=== PATIENT | male | born 1975 | race African-American/Black ===

== ENCOUNTER 2019-08-28 14:37 | Emergency (ER) | payer BC ==
[~2019-08-28] VITALS: Ht 188 cm; Wt 83.9 kg
[~2019-08-28 14:37] MED LIST: NKM
--- NOTE | 2019-08-28 14:45 | NUR ---
ED Nurse Note: Pt ambulated to ED with c/o presence of bright red blood on the stool this morning. Pt is AOx4; calm and cooperative. Placed on bed, on RA.
[2019-08-28 14:54] VITALS: BP 133/82
[2019-08-28] MEDS ORDERED: Omnipaque-300 100ml vial INJ PRN (15:00)
[2019-08-28 15:34] LABS: BASOPHILS % (AUTO) 2.9 % (0.0-2.0); EOSINOPHILS % (AUTO) 2.4 % (0.0-3.0); HEMATOCRIT 45.5 % (42.0-52.0); HEMOGLOBIN 15.3 G/DL (14.2-18.0); LYMPHOCYTES % (AUTO) 35.3 % (20.0-45.0); MEAN CORPUSCULAR VOLUME 88 FL (80-99); MONOCYTES % (AUTO) 10.1 % (1.0-10.0); NEUTROPHILS % (AUTO) 49.3 % (45.0-75.0); PLATELET COUNT 220 K/UL (150-450); RED BLOOD COUNT 5.16 M/UL (4.70-6.10); RED CELL DISTRIBUTION WIDTH 10.3 % (11.6-14.8)
[2019-08-28 15:38] LABS: ANION GAP 6 mmol/L (5-15); BLOOD UREA NITROGEN 15 mg/dL (7-18); CALCIUM 8.8 MG/DL (8.5-10.1); CARBON DIOXIDE 30 MMOL/L (21-32); CHLORIDE 108 MMOL/L (98-107); CREATININE 1.3 MG/DL (0.55-1.30); POTASSIUM 3.9 MMOL/L (3.5-5.1); SODIUM 144 MMOL/L (136-145)
--- NOTE | 2019-08-28 15:51 | NUR ---
ED Nurse Note: Pt went on CT accompanied by tech.
[2019-08-28 15:53] LABS: ALANINE AMINOTRANSFERASE 29 U/L (12-78); ALBUMIN 3.9 G/DL (3.4-5.0); ALBUMIN/GLOBULIN RATIO 1.1 (1.0-2.7); ALKALINE PHOSPHATASE 54 U/L (46-116); ASPARTATE AMINO TRANSFERASE 25 U/L (15-37); BILIRUBIN,TOTAL 3.7 MG/DL (0.2-1.0)
[2019-08-28 15:55] LABS: BILIRUBIN,DIRECT 0.1 MG/DL (0.0-0.3)
--- NOTE | 2019-08-28 16:36 | Diagnostic Imaging Report ---
Clinical Indication: Abdominal pain, bright red blood in stool Technique: No oral contrast utilized, per emergency room physician request IV administration nonionic contrast. Venous phase spiral acquisition obtained through the abdomen and pelvis. Multiplanar reconstructions were generated. Total dose length product 1112 mGycm. CTDIvol(s) 19 mGy. Dose reduction achieved using automated exposure control Comparison: none Findings: Lack of enteric contrast limits assessment of the GI tract. The appendix is normal. No small bowel distention. No free or loculated intraperitoneal gas or fluid is evident. Distal esophagus, stomach, duodenum is unremarkable. The liver demonstrates a 18 mm mostly hypoattenuating lesion with one focus of peripheral nodular enhancement in the dome of segment 7. No other focal liver lesions are evident. The gallbladder, bile ducts, pancreas, spleen, adrenals, left kidney are unremarkable. The right kidney demonstrates a subcentimeter low-attenuation lesion in the interpolar region which is too small to characterize. No retroperitoneal or mesenteric mass or adenopathy. No pelvic mass or adenopathy. The included lung bases demonstrate some linear atelectasis or scar on the left. The bones are unremarkable Impression: Limited assessment of the GI tract, due to lack of enteric contrast administration No definite acute abnormality or findings to explain stated clinical history of right red blood per rectum 18 mm low-attenuation right lobe liver lesion with focus of peripheral nodular enhancement. Possibly but not definitively a benign hemangioma. Consider further evaluation with hemangioma protocol CT or MRI Subcentimeter right renal lesion, too small to characterize, most likely benign simple cyst The CT scanner at [facility] is accredited by the [employer] and the scans are performed using protocols designed to limit radiation exposure to as low as reasonably achievable to attain images of sufficient resolution adequate for diagnostic evaluation.
[2019-08-28] MEDS ORDERED: ANUSOL-HC25 MG RECTAL (16:51)
--- NOTE | 2019-08-28 16:51 | Emergency Room Report ---
History of Present Illness General Chief Complaint: General Complaint Source: Patient Present Illness HPI 44-year-old male with no significant past medical history here complaining of new onset of rectal bleeding that started this morning after defecating. Patient reports that he always have regular bowel movements and never experienced constipation. Reports that this morning he noticed that there is an external hemorrhoid coming out as well as scant amount of blood as he defecated however denies any rectal bleeding at this time. Patient vital signs are within normal limits. Denies fatigue, shortness of breath, chest pain, headache and dizziness. Reports that has not had any colonoscopies in the past. Denies any cardiac history, or taking any blood thinners. Denies any pain at this time. Denies acid reflux, nausea vomiting, alcohol intake, tobacco smoke, drug use Allergies: Coded Allergies: No Known Allergies (Unverified , 10/02/12) Patient History Past Medical History: see triage record Past Surgical History: none Pertinent Family History: none Immunizations: UTD Reviewed Nursing Documentation: PMH: Agreed; PSxH: Agreed Nursing Documentation-PMH Past Medical History: No Stated History Review of Systems All Other Systems: negative except mentioned in HPI Physical Exam Vital Signs Date Time Temp Pulse Resp B/P (MAP) Pulse Ox O2 Delivery O2 Flow Rate FiO2 08/28/19 14:41 97.9 68 17 133/82 (99) 99 Room Air Sp02 EP Interpretation: reviewed, normal General Appearance: no apparent distress, alert, GCS 15, non-toxic Head: normocephalic, atraumatic Eyes: bilateral eye normal inspection, bilateral eye PERRL ENT: hearing grossly normal, normal pharynx, no angioedema, normal voice Neck: full range of motion, supple, supple/symm/no masses Respiratory: chest non-tender, lungs clear, normal breath sounds, no rhonchi, no retraction, no wheezing, speaking full sentences Cardiovascular #1: regular rate, rhythm, no edema, no murmur Gastrointestinal: normal bowel sounds, non tender, soft, no mass, no organomegaly, no peritonitis, no bruit, non-distended, no guarding, no hernia, no pulsatile mass, no rebound Rectal: deferred Genitourinary: no CVA tenderness Musculoskeletal: back normal, normal range of motion, no calf tenderness, gait/ station normal, non-tender Neurologic: alert, motor strength/tone normal, oriented x3, sensory intact, responsive, speech normal Psychiatric: judgement/insight normal, memory normal, mood/affect normal, no suicidal/homicidal ideation Skin: no rash Lymphatic: no adenopathy Medical Decision Making PA Attestation All diagnoses and treatment plans were reviewed and discussed with my supervising physician Dr. Beck Diagnostic Impression: Primary Impression: Acute hemorrhoid Additional Impressions: Renal cyst Liver lesion Rectal bleeding ER Course 44-year-old male with no significant past medical history here complaining of new onset of rectal bleeding that started this morning after defecating. Patient reports that he always have regular bowel movements and never experienced constipation. Reports that this morning he noticed that there is an external hemorrhoid coming out as well as scant amount of blood as he defecated however denies any rectal bleeding at this time. Patient vital signs are within normal limits. Denies fatigue, shortness of breath, chest pain, headache and dizziness. Reports that has not had any colonoscopies in the past. Denies any cardiac history, or taking any blood thinners. Denies any pain at this time. Denies acid reflux, nausea vomiting, alcohol intake, tobacco smoke, drug use Ddx considered but are not limited to: appendicitis, cholecystis, gastritis, gastroenteritis, UTI, pyelonephritis, SBO, diverticulitis, external hemorrhoids , internal hemorrhoids, colorectal cancer Vital signs: are WNL, pt. is afebrile H&PE are most consistent with: Possible internal and external hemorrhoids, incidental finding of a renal cyst, liver lesion ORDERS: abdominal CT, abdominal pain set, Anusol rectal cream ED INTERVENTIONS: NS bolus DISCHARGE: At this time pt. is stable for d/c to home. Will provide printed patient care instructions, and any necessary prescriptions. Care plan and follow up instructions have been discussed with the patient prior to discharge. Patient follow with primary care provider for referral to barratte operator to address rectal bleeding possible colonoscopy due to patient being - [place] and 44 years old. Patient to increase fiber intake and oral hydration. At this time no indication for stool softeners necessary as patient has regular bowel movements and is very active. Patient also to follow with primary care provider regarding renal cyst and liver lesion. CT/MRI/US Diagnostic Results CT/MRI/US Diagnostic Results : Imaging Test Ordered: CT abdomen pelvis with contrast Impression Renal cyst, lesion noted on liver, otherwise within normal limits Last Vital Signs Date Time Temp Pulse Resp B/P (MAP) Pulse Ox O2 Delivery O2 Flow Rate FiO2 08/28/19 14:54 68 17 Room Air 08/28/19 14:54 97.9 133/82 99 Status: improved Disposition: HOME, SELF-CARE Condition: Stable Scripts Hydrocortisone Acetate* (ANUSOL-HC*) 25 Mg Supp.rect 1 SUPP RECTAL TWICE A DAY, #25 SUPP Prov: Jenny Martinez 08/28/19 Referrals: [facility],REFERRING (PCP) Patient Instructions: Hemorrhoids, [id number] Additional Instructions: Take medication as directed, follow-up with your primary care provider, you need to be referred to barratte operator. If worsening symptoms return to emergency room. Jenny Martinez Aug 28, 2019 16:51
[2019-08-28 17:03] VITALS: BP 133/82
--- NOTE | 2019-08-28 17:03 | NUR ---
ER DISCHARGE NOTE: Pt is cleared to be discharge per ERMD,. Pt is AOx4, on RA, VSS. pt was given dc and prescription instructions, pt was able to verbalize understanding, pt id band and iv site removed without complication. pt is able to ambulate with steady gait. Pt left ER with all belongings.
== END 2019-08-28 17:03 | disposition home or self-care (01) ==
LOC: EMR 16:00
DX: K64.9 Unspecified hemorrhoids (principal); N28.1 Cyst of kidney, acquired; K76.9 Liver disease, unspecified; K62.5 Hemorrhage of anus and rectum
CPT/HCPCS: 36415; 74177; 80053; 82248; 85025; 85610; 85730; 96360; 99284; Q9967